=== PATIENT | female | born 1955 | race Caucasian/White ===

== ENCOUNTER 2023-12-29 13:06 | Outpatient (AMB) | payer OTHER, SELFPAY ==
[2023-12-29 13:07] VITALS: BP 116/74; PULSE 76; O2SAT 95; BMI 37.6
--- NOTE | 2023-12-29 13:07 | A.OFFPC_ITS ---
Vital Signs 12/29/23 13:07 Height 5 ft 4 in Weight 219 lb 4 oz BMI 37.6 BP 116/74 Blood Pressure Location Rt brachial Position Sitting Pulse 76 Pulse Source Pulse Oximeter Pulse Oximetry (%) 95 Oxygen Delivery Method Room Air Intake Visit Reasons: Est Care Allergies povidone-iodine [From BETADINE] Allergy (Unknown, Unverified 12/29/23 13:10) RASH soap [From BETADINE] Allergy (Unknown, Unverified 12/29/23 13:10) RASH Tobacco use date assessed: 12/29/23 Fall risk assessment: No Falls in past year Last assessed Fall Risk: 12/29/23 Dental Screening Dental Screen Date: 12/29/23 Did you have a dental visit in the last 12 months?: Yes Did you have a dental problem in the last 6 months where you did not have access to dental care?: No Was dental information given to patient?: Patient has dentist HPI HPI Comments History of Present Illness Details The patient is a 68-year-old female with a past medical history of OA, erosive OA, breast cancer, hypertension, hyperlipidemia, hyperglycemia, abnormal TFTs, MIRIAN, anxiety presenting for follow up At last visit presented to review recent outside imaging. The patient recently had a chest x-ray performed at [facility]. This showed a large stable left breast calcification. She has a history of left breast lumpectomy x3 (11/2006, 12/2006, 02/2007). Her mammograms are up-to-date. Cardiovascular: On simvastatin and lisinopril. Unchanged chronic shortness of breath and intermittent left chest pain burping. She had a stress test in 2022 without evidence of ischemia. Treated 10/2022 for Lyme disease. She was hospitalized from 11/05-11/07/2022 after presenting with right facial numbness, right facial droop. MRI showed no acute changes but showed nonspecific findings of chronic small-vessel disease. Labs from 11/08/2022 showed positive IgM and IgG Lyme testing. ENT/allergy: Evaluated by ENT for some hearing loss. She sees Allergy as well. Chronic postnasal drip. GI: Dyspepsia swallowing with daily PPI. Continues to have a lot of phlegm and upper airway stridor. Saw Gastroenterology last year. 09/01/2017 CT Colonoscopy 2014 advised 10 year repeat-ordered today ROS CONSTITUTIONAL: Denies weight loss, fever and chills. HEENT: Denies changes in vision and hearing. RESPIRATORY: Denies SOB and cough. CV: Denies palpitations and CP GI: Denies abdominal pain, nausea, vomiting and diarrhea. : Denies dysuria and urinary frequency. MSK: Denies new myalgia and joint pain. SKIN: Denies rash and pruritus. NEUROLOGICAL: Denies headache PSYCHIATRIC: Denies recent changes in mood. PHYSICAL EXAM: GENERAL: Alert and oriented x 3. NAD EYES: EOMI. Anicteric. HENT: Moist mucous membranes. No scleral icterus. No cervical lymphadenopathy. LUNGS: Clear to auscultation bilaterally. CARDIOVASCULAR: Regular rate and rhythm. ABDOMEN: Soft, non-tender +bs EXTREMITIES: No edema. Non-tender. SKIN: No rashes or lesions. Warm. NEUROLOGIC: No focal neurological deficits. CN II-XII grossly intact PSYCHIATRIC: Cooperative. Appropriate mood and affect [facility] Surgical History (Updated 12/29/23 @ 13:13 by Minerva Bhakta CMA) H/O section (~1989) History of lumpectomy (~2006) History of total right knee replacement (~2017) Family History (Updated 12/29/23 @ 13:15 by Minerva Bhakta CMA) Mother Diabetes Hypertension Maternal Grandmother Diabetes Father Hypertension Social History (Updated 12/29/23 @ 13:12 by Minerva Bhakta CMA) Household Members: Spouse Housing: House Alcohol intake: never Patient Tobacco Use Status: Never used Tobacco e-Cigarette/Vaping Use: Never Used service: No Current occupational status: employed 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 1. Little interest or pleasure in doing things: not at all 2. Feeling down, depressed, or hopeless: not at all 3. Trouble falling or staying asleep, or sleeping too much: not at all 4. Feeling tired or having little energy: not at all 5. Poor appetite or overeating: not at all 6. Feeling bad about yourself - or that you are a failure or have let yourself or your family down: not at all 7. Trouble concentrating on things, such as reading the newspaper or watching television: not at all 8. Moving or speaking so slowly that other people could have noticed. Or the opposite - being so fidgety or restless that you have been moving around a lot more than usual: not at all 9. Thoughts that you would be better off or of hurting yourself in some way: not at all Total score: 0 Depression Screening Interpretation: Negative (neg) Depression Screening Done: Yes 77484 - PHQ-9 Billing: Yes Source: Developed by Drs. Alexander Maldonado, Jessica Arias, Lloyd Bauer and colleagues, with an educational ting from [employer]. Thrive Questionnaire Date Thrive assessed: 12/29/23 I am a: Patient What is your living situation today?: I have a steady place to live Within the past 12 months, did the food you bought not last and you didn't have the money to get more?: Never true Within the past 12 months, did you worry whether your food would run out before you got money to buy more?: Never true Do you have trouble paying for medicines?: No Do you have trouble getting transportation to medical appointments?: No Do you have trouble paying your heating and electricity bill?: No Do you have trouble taking care of your child, family member or friend?: No Do you have trouble with day-to-day activities such as bathing, preparing meals, shopping, managing finances, etc.?: No Are you currently unemployed and looking for a job?: No Are you interested in more education?: No Please select the resources that you would like help with: None Currently or been in a relationship where the following occur: No concerns reported THRIVE Score: 0 AUDIT C Alcohol Use Questionnaire (AUDIT-C) 1. How often do you have a drink containing alcohol?: Never 3. How often do you have six or more drinks on one occasion?: Never Total Score: 0 JAKE-7 AMB Questionnaire JAKE-7 Date JAKE - 7 assessed: 12/29/23 Feeling nervous, anxious, or on edge: 0 = Not at all Not being able to stop or control worryin = Not at all Worrying too much about different things: 0 = Not at all Trouble relaxin = Not at all Being so restless that it is hard to sit still: 0 = Not at all Feeling afraid as if something awful might happen: 0 = Not at all Source: Developed by Drs. Alexander Maldonado, Jessica Arias, Lloyd Bauer and colleagues, with an educational ting from [employer]. JAKE-7 Assessment Billing JAKE-7 Assessment Tool: JAKE-7 Assessment 38439 Physical exam (Primary Care) Vital Signs: Last Vital Signs Pulse 76 12/29/23 13:07 BP 116/74 12/29/23 13:07 Pulse Ox 95 12/29/23 13:07 Oxygen Delivery Method Room Air 12/29/23 13:07 BMI result Body Mass Index 37.6 Tobacco/Smoking Status: Tobacco use Status Tobacco use date assessed 12/29/23 12/29/23 13:16 Patient Tobacco Use Status Never used Tobacco 12/29/23 13:16 e-Cigarette/Vaping Use Never Used 12/29/23 13:16 PHQ-9: PHQ-9 Score PHQ-9: Total score 0 12/29/23 13:22 Depression Screening Interpretation: Negative (neg) Thrive Assessment: Date of Thrive Assessment Date Thrive assessed 12/29/23 12/29/23 13:16 Currently or been in a relationship where the following occur: No concerns reported Assessment and Plan Assessment & Plan (1) Lesion of breast: Code(s): N64.9 - Disorder of breast, unspecified Plan: Diagnostic mammo and u/s ordered-this was already placed a few months ago Referral to breast surgeon-also placed a few months ago (2) Elevated glucose: Code(s): R73.09 - Other abnormal glucose Plan: check labs (3) Hypertension: Code(s): I10 - Essential (primary) hypertension Qualifiers: Hypertension type: primary hypertension Qualified Code(s): I10 - Essential (primary) hypertension Plan: well controlled on current dose (4) Hyperlipidemia: Code(s): E78.5 - Hyperlipidemia, unspecified Qualifiers: Hyperlipidemia type: mixed hyperlipidemia Qualified Code(s): E78.2 - Mixed hyperlipidemia Plan: Lipids reviewed from 06/2023. Mild elevation in total cholesterol with LDL at goal Orders: Orders Hemoglobin A1c Today R73.09 - Other abnormal glucose, Z13.0 - Encounter for screening for diseases of the blood and blood-forming organs and certain disorders involving the immune mechanism, Z13.228 - Encounter for screening for other metabolic disorders Complete Blood Count Auto Diff Today R73.09 - Other abnormal glucose, Z13.0 - Encounter for screening for diseases of the blood and blood-forming organs and certain disorders involving the immune mechanism, Z13.228 - Encounter for screening for other metabolic disorders Comprehensive Met. Panel Today R73.09 - Other abnormal glucose, Z13.0 - Encounter for screening for diseases of the blood and blood-forming organs and certain disorders involving the immune mechanism, Z13.228 - Encounter for screen ing for other metabolic disorders TSH reflex Free T4 Today R73.09 - Other abnormal glucose, Z13.0 - Encounter for screening for diseases of the blood and blood-forming organs and certain disorders involving the immune mechanism, Z13.228 - Encounter for screening for other metabolic disorders MM screening mammo BI Today Z12.31 - Encounter for screening mammogram for malignant neoplasm of breast Referrals Open Access Screening Colonoscopy Referral Z12.11 - Encounter for screening for malignant neoplasm of colon, Z12.12 - Encounter for screening for malignant neoplasm of rectum Medications: New clobetasol 0.05% applied onto dry (not wet) scalp once a day in a thin film to the affected areas only, and left in place for 15 minutes before lathering and rinsing. 1 appl topical BEDTIME 4 weeks 118 mL 3RF lisinopril 10 mg PO DAILY 90 tabs 3RF omeprazole 20 mg PO DAILY 90 caps 3RF simvastatin 20 mg PO BEDTIME 90 tabs 3RF Coding Level of Care Code Est Pt Level 5 (05744) Diagnoses Lesion of breast N64.9 Elevated glucose R73.09 Primary hypertension I10 Hypertension type: primary hypertension Mixed hyperlipidemia E78.2 Hyperlipidemia type: mixed hyperlipidemia Additional Codes JAKE-7 Assessment Billing - JAKE-7 Assessment Tool: JAKE-7 Assessment 37174 ([id number]) Time Spent (min) 42
== END 2023-12-29 13:51 | disposition home or self-care (01) ==
PROVIDERS: Visit Provider Internal Medicine
DX: N64.9 Disorder of breast, unspecified (principal); I10 Essential (primary) hypertension; E78.2 Mixed hyperlipidemia

== ENCOUNTER → 2023-12-29 13:06 | Outpatient (BNVA) | payer OTHER, SELFPAY | PROVIDERS: Visit Provider Internal Medicine | DX: N64.9 Disorder of breast, unspecified (principal); R73.09 Other abnormal glucose; I10 Essential (primary) hypertension; E78.2 Mixed hyperlipidemia; Z79.899 Other long term (current) drug therapy | CPT/HCPCS: 96127 ==

== ENCOUNTER 2024-01-05 11:00 | Outpatient (REF) | payer OTHER, SELFPAY ==
[2024-01-05 14:10] LABS: MANUAL DIFF FLAG NO
[2024-01-05 14:17] LABS: Basophils Percent Auto 0.5 % (0-2); Eosinophils Absolute Auto 0.2 X10*3/uL (0.0-0.4); Eosinophils Percent Auto 4.2 % (0-4); Hematocrit 39.1 % (37.0-47.0); Hemoglobin 13.1 g/dl (12.0-16.0); Imm Gran Abs Auto 0.02 X10*3/uL (0.00-0.03); Imm Gran Pct Auto 0.3 % (0.0-0.4); Lymphocytes Absolute Auto 1.3 X10*3/uL (1.2-4.9); Lymphocytes Percent Auto 21.8 % (20-40); Mean Corpuscular HGB Conc 33.5 g/dl (31.0-35.0); Mean Corpuscular Hemoglobin 29.1 pg (27.0-33.0); Mean Corpuscular Volume 86.9 fL (80.0-98.0); Mean Platelet Volume 10.7 fL (9.4-12.3); Monocytes Absolute Auto 0.4 X10*3/uL (0.1-1.2); Monocytes Percent Auto 6.8 % (2-11); Neutrophils Absolute Auto 3.8 x10*3/uL (2.0-8.3); Neutrophils Percent Auto 66.4 % (45-73); Platelet Count 294 X10*3/uL (160-400); White Blood Count 5.8 X10*3/uL (4.8-10.8)
[2024-01-05 14:26] LABS: Estimated Average Glucose 105 mg/dL; Hemoglobin A1C 117.7341 umol/L; Hemoglobin A1c % 5.3 % (<6.0); Total Hemoglobin (HGBA1C) 3378.7642 umol/L
[2024-01-05 14:42] LABS: Alanine Aminotransferase 13 U/L (0-31); Albumin Level 3.9 g/dL (3.5-5.0); Alkaline Phosphatase 68 U/L (39-117); Anion Gap 10 (12-20); Aspartate Amino Transferase 17 U/L (5-31); Bilirubin Total 0.5 mg/dL (0.0-1.0); Blood Urea Nitrogen 17 mg/dL (9-16); Calcium 9.3 mg/dL (8.4-10.2); Carbon Dioxide 25 mmol/L (22-29); Chloride 109 mmol/L (96-108); Estimated Glomerular Filt Rate > 60; Glucose Random 96 mg/dL (60-115); Potassium 4.2 mmol/L (3.3-5.1); Sodium 140 mmol/L (135-145); Total Protein 7.2 g/dL (6.5-8.0)
[2024-01-05 14:59] LABS: TSH reflex Free T4 2.77 uIU/mL (0.32-4.0)
== END 2024-01-05 11:01 | disposition home or self-care (01) ==
LOC: HO.WFDLDS 11:00
PROVIDERS: Visit Provider Internal Medicine
DX: Z13.228 Encounter for screening for other metabolic disorders (principal); Z13.0 Encounter for screening for diseases of the blood and blood-forming organs and certain disorders involving the immune mechanism; R73.09 Other abnormal glucose
CPT/HCPCS: 36415; 80053; 83036; 84443; 85025

== ENCOUNTER 2024-10-04 15:05 | Outpatient (AMB) | payer OTHER, SELFPAY ==
--- NOTE | 2024-10-04 15:13 | MHC.PC.OV ---
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: No Allergies povidone-iodine (From BETADINE) Allergy (Unknown, Verified 10/04/24 15:14) RASH soap (From BETADINE) Allergy (Unknown, Verified 10/04/24 15:14) RASH Tobacco use date assessed: 12/29/23 Fall risk assessment: No Falls in past year Dental Screening Dental Screen Date: 12/29/23 Did you have a dental visit in the last 12 months?: Yes Did you have a dental problem in the last 6 months where you did not have access to dental care?: No Was dental information given to patient?: Patient has dentist HPI HPI Comments History of Present Illness Details The patient is a 69-year-old female with a past medical history of OA, erosive OA, breast cancer, hypertension, hyperlipidemia, hyperglycemia, abnormal TFTs, MIRIAN, anxiety presenting for physical exam At last visit presented to review recent outside imaging. The patient recently had a chest x-ray performed at [facility]. This showed a large stable left breast calcification. She has a history of left breast lumpectomy x3 (11/2006, 12/2006, 02/2007). Her mammograms are up-to-date. She saw the breast center thereafter. Breast exam was consistent with a left breast mass. Location was confirmed with prior cxr and mammogram and decided to be previous scar tissue Cardiovascular: On simvastatin and lisinopril. Shortness of breath improved with recent weight loss and initiation of Qvar. She had a stress test in 2022 without evidence of ischemia. Treated 10/2022 for Lyme disease. She was hospitalized from 11/05-11/07/2022 after presenting with right facial numbness, right facial droop. MRI showed no acute changes but showed nonspecific findings of chronic small-vessel disease. Labs from 11/08/2022 showed positive IgM and IgG Lyme testing. ENT/allergy: Evaluated by ENT for some hearing loss. She sees Allergy as well. Chronic postnasal drip. GI: Dyspepsia swallowing with daily PPI. Continues to have a lot of phlegm and upper airway stridor. Saw Gastroenterology last year. 09/01/2017 CT Colonoscopy [facility] 2023-[facility] CONSTITUTIONAL: Denies weight loss, fever and chills. HEENT: Denies changes in vision and hearing. RESPIRATORY: Denies SOB and cough. CV: Denies palpitations and CP GI: Denies abdominal pain, nausea, vomiting and diarrhea. : Denies dysuria and urinary frequency. MSK: Denies new myalgia and joint pain. SKIN: Denies rash and pruritus. NEUROLOGICAL: Denies headache PSYCHIATRIC: Denies recent changes in mood. PHYSICAL EXAM: GENERAL: Alert and oriented x 3. NAD EYES: EOMI. Anicteric. HENT: Moist mucous membranes. No scleral icterus. No cervical lymphadenopathy. LUNGS: Clear to auscultation bilaterally. CARDIOVASCULAR: Regular rate and rhythm. ABDOMEN: Soft, non-tender +bs EXTREMITIES: No edema. Non-tender. SKIN: No rashes or lesions. Warm. NEUROLOGIC: No focal neurological deficits. CN II-XII grossly intact PSYCHIATRIC: Cooperative. 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 1. Little interest or pleasure in doing things: not at all 2. Feeling down, depressed, or hopeless: not at all 3. Trouble falling or staying asleep, or sleeping too much: not at all 4. Feeling tired or having little energy: not at all 5. Poor appetite or overeating: not at all 6. Feeling bad about yourself - or that you are a failure or have let yourself or your family down: not at all 7. Trouble concentrating on things, such as reading the newspaper or watching television: not at all 8. Moving or speaking so slowly that other people could have noticed. Or the opposite - being so fidgety or restless that you have been moving around a lot more than usual: not at all 9. Thoughts that you would be better off or of hurting yourself in some way: not at all Total score: 0 Depression Screening Interpretation: Negative Depression Screening Done: Yes 39948 - PHQ-9 Billing: Yes Source: Developed by Drs. Alexander Maldonado, Jessica Arias, Lloyd Bauer and colleagues, with an educational ting from [employer]. Thrive Questionnaire Date Thrive assessed: 09/27/24 I am a: Patient What is your living situation today?: I have a steady place to live Within the past 12 months, did the food you bought not last and you didn't have the money to get more?: Never true Within the past 12 months, did you worry whether your food would run out before you got money to buy more?: Never true Do you have trouble paying for medicines?: No Do you have trouble getting transportation to medical appointments?: No Do you have trouble paying your heating and electricity bill?: No Do you have trouble taking care of your child, family member or friend?: No Do you have trouble with day-to-day activities such as bathing, preparing meals, shopping, managing finances, etc.?: No Are you currently unemployed and looking for a job?: No Are you interested in more education?: No Please select the resources that you would like help with: None Currently or been in a relationship where the following occur: I choose not to answer THRIVE Score: 0 AUDIT C Alcohol Use Questionnaire (AUDIT-C) 1. How often do you have a drink containing alcohol?: Never 3. How often do you have six or more drinks on one occasion?: Never Total Score: 0 JAKE-7 AMB Questionnaire JAKE-7 Date JAKE - 7 assessed: 10/04/24 Feeling nervous, anxious, or on edge: 0 = Not at all Not being able to stop or control worryin = Not at all Worrying too much about different things: 0 = Not at all Trouble relaxin = Not at all Being so restless that it is hard to sit still: 0 = Not at all Becoming easily annoyed or irritable: 0 = Not at all Feeling afraid as if something awful might happen: 0 = Not at all Total JAKE-7 score (0-4 normal; 5-9 mild; 10-14 moderate; 15-21 severe): 0 Source: Developed by Drs. Alexander Maldonado, Jessica Arias, Lloyd Bauer and colleagues, with an educational ting from [employer]. JAKE-7 Assessment Billing JAKE-7 Assessment Tool: JAKE-7 Assessment 57976 Physical exam (Primary Care) Vital Signs: Last Vital Signs Temp 97.8 F 10/04/24 15:18 Pulse 73 10/04/24 15:18 Resp 14 10/04/24 15:18 BP 126/88 10/04/24 15:18 Pulse Ox 93 10/04/24 15:18 Oxygen Delivery Method Room Air 10/04/24 15:18 BMI result Body Mass Index 35.9 Tobacco/Smoking Status: Tobacco use Status Tobacco use date assessed 12/29/23 10/04/24 15:15 Patient Tobacco Use Status Never used Tobacco 10/04/24 15:22 e-Cigarette/Vaping Use Never Used 10/04/24 15:22 PHQ-9: PHQ-9 Score PHQ-9: Total score 0 10/04/24 15:22 Depression Screening Interpretation: Negative Thrive Assessment: Date of Thrive Assessment Date Thrive assessed 09/27/24 10/04/24 15:15 Currently or been in a relationship where the following occur: I choose not to answer Coding Level of Care Code Est Pt Prev Care >65y(40268) Diagnoses Physical exam Z00.00 Primary hypertension I10 Hypertension type: primary hypertension Mixed hyperlipidemia E78.2 Hyperlipidemia type: mixed hyperlipidemia Elevated glucose R73.09 Lesion of breast N64.9 Additional Codes JAKE-7 Assessment Billing - JAKE-7 Assessment Tool: JAKE-7 Assessment 44913 ([id number]) PHQ-9 - 59485 - PHQ-9 Billing: Yes ([id number]) Assessment & Plan Assessment & Plan (1) Physical exam: Code(s): Z00.00 - Encounter for general adult medical examination without abnormal findings (2) Hypertension: Code(s): I10 - Essential (primary) hypertension Category: Medical Qualifiers: Hypertension type: primary hypertension Qualified Code(s): I10 - Essential (primary) hypertension (3) Hyperlipidemia: Code(s): E78.5 - Hyperlipidemia, unspecified Category: Medical Qualifiers: Hyperlipidemia type: mixed hyperlipidemia Qualified Code(s): E78.2 - Mixed hyperlipidemia (4) Elevated glucose: Code(s): R73.09 - Other abnormal glucose Category: Medical (5) Lesion of breast: Code(s): N64.9 - Disorder of breast, unspecified Category: Medical Plan Physical exam Interval history reviewed Breathing stable on Qvar Labs ordered HTN-patient would again like to try and decrease dose of medication Orders: Orders Complete Blood Count Auto Diff 6 Months E78.2 - Mixed hyperlipidemia, I10 - Essential (primary) hypertension, R73.09 - Other abnormal glucose, Z13.0 - Encounter for screening for diseases of the blood and blood-forming organs and certain disorders involving the immune mechanism, Z13.228 - Encounter for screening for other metabolic disorders TSH reflex Free T4 6 Months E78.2 - Mixed hyperlipidemia, I10 - Essential (primary) hypertension, R73.09 - Other abnormal glucose, Z13.0 - Encounter for screening for diseases of the blood and blood-forming organs and certain disorders involving the immune mechanism, Z13.228 - Encounter for screening for other metabolic disorders Hemoglobin A1c 6 Months E78.2 - Mixed hyperlipidemia, I10 - Essential (primary) hypertension, R73.09 - Other abnormal glucose, Z13.0 - Encounter for screening for diseases of the blood and blood-forming organs and certain disorders involving the immune mechanism, Z13.228 - Encounter for screening for other metabolic disorders Comprehensive Met. Panel 6 Months E78.2 - Mixed hyperlipidemia, I10 - Essential (primary) hypertension, R73.09 - Other abnormal glucose, Z13.0 - Encounter for screening for diseases of the blood and blood-forming organs and certain disorders involving the immune mechanism, Z13.228 - Encounter for screening for other metabolic disorders Lipid Panel 6 Months E78.2 - Mixed hyperlipidemia, I10 - Essential (primary) hypertension, R73.09 - Other abnormal glucose, Z13.0 - Encounter for screening for diseases of the blood and blood-forming organs and certain disorders involving the immune mechanism, Z13.228 - Encounter for screening for other metabolic disorders Medications: New lisinopril 5 mg PO DAILY 90 tabs 3RF Discontinued lisinopril Discontinued Reason: Doctor's Order 10 mg PO DAILY 90 tabs 3RF
[2024-10-04 15:18] VITALS: BP 126/88; PULSE 73; RESP 14; TEMP 36.6; O2SAT 93; BMI 35.9
--- OUTSIDE RECORDS SUMMARY | 2024-10-04 15:31 | XMS_ITS | Clinical Summary ---
Author Organization [facility] Address [address] [place] [address] Care Team Providers Care Gas Prover Name Role Phone Kathy Purcell MD Primary Care Provider [phone] Allergies No known active allergies Social History Tobacco Use Types Packs/Day Years Used Date Smoking Tobacco: Never Assessed Comments Unknown Sex and Gender Information Value Date Recorded Sex Assigned at Not on file Legal Sex Female 8:56 AM EDT Gender Identity Not on file Sexual Orientation Not on file Last Filed Vital Signs Vital Sign Reading Time Taken Comments Blood Pressure 135/85 06/20/2020 9:15 AM EDT Pulse 78 06/20/2020 9:15 AM EDT Temperature 36.4 C (97.6 F) 06/20/2020 9:15 AM EDT Respiratory Rate - - Oxygen Saturation 96% 06/20/2020 9:15 AM EDT Inhaled Oxygen Concentration - - Weight 113 kg (250 lb) 06/20/2020 9:15 AM EDT Height 162.6 cm (5' 4 ) 06/20/2020 9:15 AM EDT Body Mass Index 42.91 06/20/2020 9:15 AM EDT Plan of Treatment Health Maintenance Due Date Last Done Comments Hepatitis C Virus Screening 1955 DTaP/Tdap/Td Vaccines (1 - Tdap) 1976 Mammogram 1997 Colonoscopy 2002 Pneumococcal Vaccines 50+ (1 of 1 - PCV) 08/17/2007 Zoster (Shingles) Vaccine (1 of 2) 08/17/2007 DXA Bone Density (Females,Ag es 65 and older) 2022 COVID-19 Vaccine (2023-2 5 season) 2023 Influenza Vaccine 10/29/2024 RSV Vaccine 60 years and old er and Patients (1 - 1-dose 75+ series) 2032 Hepatitis B Vaccines Aged Out No long er eligible based on patient's age to complete this topic Insurance [facility] Care Teams Gas Prover Relationship Specialty Start Date End Date Kathy Purcell MD [address] [place] [address] PCP - General 06/20/20
--- OUTSIDE RECORDS SUMMARY | 2024-10-04 15:31 | XMS_ITS | Data Portability ---
Author Organization [facility], [facility] Address [address] [place] [address] Care Team Providers Care Ruffler Name Role Phone MD RODRIGUEZ JEANNE Primary Care Provider JOHNATHAN JORDAN Outreach Nurse Assessment Encounter Date Assessment Date Assessment LastModified by Organization Details LastModified Time 10/27/2014 10/27/2014 foot pain right greater than left, pes planovalgus deformity jerskine Not available 10/27/2014 11:36:19 11/17/2014 11/17/2014 foot pain right greater than left, pes planovalgus deformity jerskine Not available 11/17/2014 10:33:22 12/29/2014 12/29/2014 foot pain right greater than left, pes planovalgus deformity jerskine Not available 12/29/2014 12:24:31 Plan of Treatment Reminders Order Date Submit Date Provider Last Modified By Organization Details Last Modified Time Details Appointments None record ed. Lab None record ed. Referral None record ed. Procedures None record ed. Surgeries None record ed. Imaging None record ed. Medication Orders None record ed. Patient TargetsNo targets recorded. Patient Instructions Encounter Date Encounter Id Patient Instructions Last Modified By Organization Details Last Modified Time 10/27/2014 [id number] Patient to schedule casting of custom orthotics ( sport with Spenco top covers). jerskine Not available 10/27/2014 11:36:19 11/17/2014 [id number] Casting of custo m orthotics performed. Will contact patient to dispense devices. jerskine Not available 11/17/2014 10:33:22 12/29/2014 [id number] Patient to retur n 2-3 weeks for orthotic evaluation. jerskine Not available 12/29/2014 12:24:31 Reason for Referral None Reported. Results Created Date Observation Date Name Description Value Unit Range Abnormal Flag Note LastModifiedBy Organization Detail LastModifiedTime 10/01/19 24 09/25/2023 XR, chest , 2 view No observ ation record ed. [facility] [address], [place], [address], 10/05/2023 12:54:03 Result Notes None recorded. Medical Equipment None Reported. Allergies No known drug allergies Medications Name Sig Start Date Stop Date Status Note LastModified by Organization Details LastModified Time azithromycin 250 mg tablet TAKE 2 TABLETS BY MOUTH TODAY, THEN TAKE 1 TABLET DAILY FOR 4 DAYS active Not Available Not Available No t Available simvastatin 40 mg tablet active Not Available Not Available No t Available lisinopril 10 mg tablet active Not Available Not Available No t Available fluticasone propionate 50 mcg/actuation nasal spray,suspensi on active Not Available Not Available Not Available simvastatin active Not Available Not A vailable Not Available lisinopril active Not Available Not Av ailable Not Available Vitals Date Recorded Body weight Body height Heart rate Body mass index (BMI) Systolic And Diastolic Provider Name and Address Organization Details Last Updated DateTime 10/27/2014 248733.2 0695 g 162.56 cm 78 /min 40.3 kg/m2 120/80 mm[Hg] Caleb Castellon MA [facility] 10/27/2014 10:57:34 Date Recorded Body weight Body height Body mass index (BMI) Heart rate Systolic And Diastolic Provider Name and Address Organization Details Last Updated DateTime 11/17/2014 333273.2 0695 g 162.56 cm 40.3 kg/m2 76 /min 120/80 mm[Hg] Caleb Castellon MA [facility] 11/17/2014 10:11:41 Date Recorded Body weight Body height Body mass index (BMI) Heart rate Systolic And Diastolic Provider Name and Address Organization Details Last Updated DateTime 12/29/2014 827685.2 0695 g 162.56 cm 40.3 kg/m2 76 /min 130/80 mm[Hg] Caleb Castellon MA [facility] 12/29/2014 11:54:37 Social History None recorded. Functional Status None recorded. Mental Status None recorded. Family History Nothing Reported. Medical History No medical history recorded. Gynecological HistoryNo gynecological history recorded. Obstetrics History GPAL:G 0 P 0 0 0 0 Past Encounters Encounter ID Performer Location Encounter Start Date Encounter Closed Date Diagnosis/Indication Diagnosis SNOMED-CT Code Diagnosis ICD10 Code Diagnosis Note [id number] Johnathan Jordan DPM Podiatry, [facility] [address] [place] [address] 10/27/2014 10:36:19 10/27/2014 11:39:18 Pain in lower limb 03460813 Congenital valgus deformity of foot 55238719 [id number] Johnathan Jordan DPM Podiatry, [address] [address] 11/17/2014 10:03:52 11/17/2014 10:28:16 Pain in lower limb 61531411 Congenital valgus deformity of foot 30310747 [id number] Johnathan Jordan DPM Podiatry, [address] [address] 12/29/2014 11:22:34 12/29/2014 12:11:43 Deformity of foot 480218660 M21.969 Health Concerns Section Related Observation LastModified by Organization Detai ls LastModified Time None Recorded Concern Status LastModified by Organization Details LastModified Time None Recorded Advance Directives Directive None Recorded Payers Insurance Date Sequence Insurance Name Policy Number Policy Scott Covered Member ID Scott Member ID Guarantor Name 01/10/2015 1 [facility] [employer] [facility] (HMO) [id number] Allison Sol [id number] Allison Sol 11/17/2014 1 [facility] [employer] [facility] (PPO) [id number] Allison Sol [id number] Allison Sol Notes Date Note Type Note Provider Name and Address Organization Details Recorded Time 10/27/2014 text/html HPI Patient presents to the office complaining of pain right foot greater than left that she has been experiencing for a long time, but seems to be worsening. Patient states she experiences pain especially along the top of her right foot and joint of her right big toe following increased weightbearing activity. Patient has not noted swelling or discoloration. Johnathan Jordan DPM [address] [place] [address], [phone], [facility], [place] 10/27/2014 11:36:28 11/17/2014 text/html HPI Patient presents to the office for casting of custom orthotics for foot pain right greater than left associated with pes planovalgus deformity. Johnathan Jordan DPM [address] [place], [address], [facility], [place] 11/17/2014 10:33:31 12/29/2014 text/html HPI Patient presents to the office to dispense custom orthotics for generalized foot pain right foot greater than left associated with pes planovalgus deformity. Patient continues to experience pain with increased weightbearing activity. Johnathan Jordan DPM [address] [place], [address], [facility], [place] 12/29/2014 12:24:42 OBGyn Episode No OBEpisode recorded.
--- OUTSIDE RECORDS SUMMARY | 2024-10-04 15:31 | XMS_ITS | Encounter Summary ---
Author Organization [employer] Address [address] [facility] [address] [place] [address] Care Team Providers Care Catering Server Name Role Phone PcpHamzah Unassigned Primary Care Provider U navailable Encounter Details Date Type Department Care Team (Latest Contact Info) Description 01/03/2021 [facility] CONVERSIONS Dental, Provider, DDS Social History Tobacco Use Types Packs/Day Years Used Date Smoking Tobacco: Never Assessed Comments Unknown Sex and Gender Information Value Date Recorded Sex Assigned at Female 07/11/2022 10:21 AM EDT Legal Sex Female 5:35 PM EDT Gender Identity Female 07/11/2022 10:21 AM EDT Sexual Orientation Choose not to disclose 2022 10:21 AM EDT documented as of this encounter Plan of Treatment Upcoming Encounters Date Type Department Care Team (Late st Contact Info) Description 04/07/2025 8:30 AM EST Office Visit Hamzah [facility] [address] [place] [address] Rosa De Souza documented as of this encounter Visit Diagnoses Not on filedocumented in this encounter Care Teams Catering Server Relationship Specialty Start Date End Date PcpHamzah Unassigned PCP - General Family Medicine 07/29/22 documented as of this encounter
== END 2024-10-04 15:48 | disposition home or self-care (01) ==
LOC: HO.HMCFM 15:06
PROVIDERS: Visit Provider Internal Medicine
DX: Z00.00 Encounter for general adult medical examination without abnormal findings (principal); I10 Essential (primary) hypertension; E78.2 Mixed hyperlipidemia; R73.09 Other abnormal glucose; N64.9 Disorder of breast, unspecified

== ENCOUNTER → 2024-10-04 15:05 | Outpatient (BNVA) | payer OTHER, SELFPAY | PROVIDERS: Visit Provider Internal Medicine | DX: Z00.00 Encounter for general adult medical examination without abnormal findings (principal); I10 Essential (primary) hypertension; E78.2 Mixed hyperlipidemia; R73.09 Other abnormal glucose; N64.9 Disorder of breast, unspecified; Z13.30 Encounter for screening examination for mental health and behavioral disorders, unspecified; Z13.31 Encounter for screening for depression | CPT/HCPCS: 96127 ==

== ENCOUNTER 2025-02-18 10:55 | Outpatient (AMB) | payer OTHER, SELFPAY ==
--- NOTE | 2025-02-18 11:01 | MHC.PC.OV ---
Vital Signs 02/18/25 11:02 Height 5 ft 4 in Weight 209 lb 6 oz BMI 35.9 BP 130/88 Blood Pressure Location Rt brachial Position Sitting Respiration 14 Pulse 76 Pulse Source Pulse Oximeter Temp 98.2 F Temp Source Oral Pulse Oximetry (%) 96 Oxygen Delivery Method Room Air Intake Visit Reasons: left shoulder issue Intake Note: Dislocated left shoulder last Friday. Neck pain. No right arm is hurting. left hip pain. 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 This happened last week usually she can stretch/pull it and then it feels better. It has not improved. Then she started sleeping on her back as such and she started to develop neck tightness right shoulder pain, frozen shoulder. Cardiovascular: On simvastatin and lisinopril. Shortness of breath improved with recent weight loss and initiation of Qvar. She had a stress test in 2022 without evidence of ischemia. Treated 10/2022 for Lyme disease. She was hospitalized from 11/05-11/07/2022 after presenting with right facial numbness, right facial droop. MRI showed no acute changes but showed nonspecific findings of chronic small-vessel disease. Labs from 11/08/2022 showed positive IgM and IgG Lyme testing. ENT/allergy: Evaluated by ENT for some hearing loss. She sees Allergy as well. Chronic postnasal drip. GI: Dyspepsia swallowing with daily PPI. Continues to have a lot of phlegm and upper airway stridor. Saw Gastroenterology last year. Breast: The patient recently had a chest x-ray performed at [facility]. This showed a large stable left breast calcification. She has a history of left breast lumpectomy x3 (11/2006, 12/2006, 02/2007). Her mammograms are up-to-date.She saw the breast center thereafter. Breast exam was consistent with a left breast mass. Location was confirmed with prior cxr and mammogram and decided to be previous scar tissue 09/01/2017 CT Colonoscopy Spring 2023-[facility] See HPI PHYSICAL EXAM: GENERAL: Alert and oriented x 3. NAD EYES: EOMI. Anicteric. HENT: Moist mucous membranes. No scleral icterus. No cervical lymphadenopathy. LUNGS: Clear to auscultation bilaterally. CARDIOVASCULAR: Regular rate and rhythm. MSK: Tender shoulder joints bilaterally, right superior trapezius spasm. Limited movement right shoulder ABDOMEN: Soft, non-tender +bs EXTREMITIES: No edema. Non-tender. SKIN: No rashes or lesions. Warm. NEUROLOGIC: No focal neurological deficits. CN II-XII grossly intact PSYCHIATRIC: Cooperative. 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 Cognitive needs: No Hearing needs: Yes Vision needs: Yes Questionnaire Thrive Questionnaire Date Thrive assessed: 09/27/24 I am a: Patient What is your living situation today?: I have a steady place to live Within the past 12 months, did the food you bought not last and you didn't have the money to get more?: Never true Within the past 12 months, did you worry whether your food would run out before you got money to buy more?: Never true Do you have trouble paying for medicines?: No Do you have trouble getting transportation to medical appointments?: No Do you have trouble paying your heating and electricity bill?: No Do you have trouble taking care of your child, family member or friend?: No Do you have trouble with day-to-day activities such as bathing, preparing meals, shopping, managing finances, etc.?: No Are you currently unemployed and looking for a job?: No Are you interested in more education?: No Please select the resources that you would like help with: None Currently or been in a relationship where the following occur: I choose not to answer THRIVE Score: 0 AUDIT C Alcohol Use Questionnaire (AUDIT-C) 3. How often do you have six or more drinks on one occasion?: Never Total Score: 0 JAKE-7 AMB Questionnaire JAKE-7 Date JAKE - 7 assessed: 10/04/24 Source: Developed by Drs. Alexander Maldonado, Jessica Arias, Lloyd Bauer and colleagues, with an educational ting from [employer]. Physical exam (Primary Care) Vital Signs: Last Vital Signs Temp 98.2 F 02/18/25 11:02 Pulse 76 02/18/25 11:02 Resp 14 02/18/25 11:02 BP 130/88 02/18/25 11:02 Pulse Ox 96 02/18/25 11:02 Oxygen Delivery Method Room Air 02/18/25 11:02 BMI result Body Mass Index 35.9 Tobacco/Smoking Status: Tobacco use Status Tobacco use date assessed 02/18/25 02/18/25 11:12 Patient Tobacco Use Status Never used Tobacco 02/18/25 11:12 e-Cigarette/Vaping Use Never Used 02/18/25 11:12 Thrive Assessment: Date of Thrive Assessment Date Thrive assessed 09/27/24 02/18/25 11:06 Currently or been in a relationship where the following occur: I choose not to answer Coding Level of Care Code Est Pt Level 4 (90298) Diagnoses Acute pain of both shoulders M25.511; M25.512 Chronicity: acute Assessment & Plan Assessment & Plan (1) Bilateral shoulder pain: Code(s): M25.511 - Pain in right shoulder; M25.512 - Pain in left shoulder Category: Medical Qualifiers: Chronicity: acute Qualified Code(s): M25.511 - Pain in right shoulder; M25.512 - Pain in left shoulder Plan Bilateral shoulder pain, neck pain Advised ortho urgent care Labs for concern PMR. Prednisone sent, tramadol prn, NSAIDs, ice/heat, muscle relaxer qhs prn Orders: Orders Erythrocyte Sedimentation Rate Today M25.511 - Pain in right shoulder, M25.512 - Pain in left shoulder, M54.2 - Cervicalgia EDI Reflex Titer and Pattern Today M25.511 - Pain in right shoulder, M25.512 - Pain in left shoulder, M54.2 - Cervicalgia C Reactive Protein Today M25.511 - Pain in right shoulder, M25.512 - Pain in left shoulder, M54.2 - Cervicalgia Medications: New prednisone 40 mg (2 x 20 mg) PO DAILY 10 tabs 0RF tramadol 50 mg PO Q6H PRN 28 tabs 0RF pain 7 days cyclobenzaprine 10 mg PO BEDTIME PRN 30 tabs 0RF muscle spasm Refilled simvastatin 20 mg PO BEDTIME 10 tabs 0RF simvastatin 20 mg PO BEDTIME 90 tabs 3RF
[2025-02-18 11:02] VITALS: BP 130/88; PULSE 76; RESP 14; TEMP 36.8; O2SAT 96; BMI 35.9
--- OUTSIDE RECORDS SUMMARY | 2025-02-18 11:50 | XMS_ITS | Encounter Summary ---
Author Organization [employer] Address [address] [place] [address] [address] [place] [address] Care Team Providers Care Home Health Billing Specialist Name Role Phone PcpHamzah Unassigned Primary Care Provider U navailable Encounter Details Date Type Department Care Team (Latest Contact Info) Description 01/14/2022 [facility] CONVERSION[facility] Dental, Provider, DDS Social [...] 04/07/2025 8:30 AM EST Office Visit Hamzah [facility] [address] [place] [address] Rosa De Souza documented as of this encounter Visit Diagnoses Not on filedocumented in this encounter Care Teams Home Health Billing Specialist Relationship Specialty Start Date End Date PcpHamzah Unassigned PCP - General Family Medicine 07/29/22 documented as of this encounter
--- OUTSIDE RECORDS SUMMARY | 2025-02-18 11:50 | XMS_ITS | Encounter Summary ---
Author Organization [employer] Address [address] [place] [address] [address] [place] [address] Care Team Providers Care Parts Expediter Name Role Phone PcpHamzah Unassigned Primary Care Provider U navailable Encounter Details Date Type Department Care Team (Latest Contact Info) Description 06/21/2020 [facility] CONVERSION[facility] Dental, Provider, DDS Social [...] 04/07/2025 8:30 AM EST Office Visit Hamzah [facility] [address] [place] [address] Rosa De Souza documented as of this encounter Visit Diagnoses Not on filedocumented in this encounter Care Teams Parts Expediter Relationship Specialty Start Date End Date PcpHamzah Unassigned PCP - General Family Medicine 07/29/22 documented as of this encounter
--- OUTSIDE RECORDS SUMMARY | 2025-02-18 11:50 | XMS_ITS | Clinical Summary ---
Author Organization [email or web address] Address [address] [place] [address] [address] [place] [address] Care Team Providers Care Nurse School Name Role Phone PcpHamzah Unassigned Primary Care Provider U navailable Allergies Active Allergy Reactions Criticality Noted Date Comments Povidone Iodine 07/19/2022 Other reaction(s): rash Tapentadol 07/19/2022 Other reaction(s): clear- skin broke out Medications simvastatin (Zocor) 40 MG tablet 07/10/2022 Active omeprazole (PriLOSEC) [address] capsule 07/10/2022 Active lisinopril 10 MG tablet 07/10/2022 Active Cholecalciferol- Vitamin C (VITAMIN D3-VITAMIN C PO) Take 2,000 Int'l Units by mouth. 08/19/2017 Active Immunizations Immunization Administration Dates Next Due Tdap 08/20/2010 Social History Tobacco Use Types Packs/Day Years Used Date Smoking Tobacco: Never Passive Smoke Exposure: Never Smokeless Tobacco: Never Tobacco Cessation:Counseling Given: Not Answered Alcohol Use Standard Drinks/Week Comments Never 0 (1 standard drink = 0.6 oz pur e alcohol) Comments Unknown Sex and Gender Information Value Date Recorded Sex Assigned at Female 07/11/2022 10:21 AM EDT Legal Sex Female 5:35 PM EDT Gender Identity Female 07/11/2022 10:21 AM EDT Sexual Orientation Choose not to disclose 2022 10:21 AM EDT Last Filed Vital Signs Vital Sign Reading Time Taken Comments Blood Pressure 128/78 11/12/2024 2:03 PM EDT Pulse 102 11/12/2024 2:03 PM EDT Temperature - - Respiratory Rate - - Oxygen Saturation - - Inhaled Oxygen Concentration - - Weight 94.8 kg (209 lb) 09/24/2024 8:42 AM EDT Height - - Body Mass Index - - Plan of Treatment Upcoming Encounters Date Type Department Care Team (Radha st Contact Info) Description 04/07/2025 8:30 AM EST Office Visit Hamzah [facility] [address] [place] [address] Rosa De Souza Health Maintenance Due Date Last Done Comments CT Colonography 1957 Colonoscopy 1957 Colorectal Cancer Screening 1957 Depression Screening 1957 FIT DNA/Cologuard 1957 FIT 1957 FOBT 1957 Lipid Panel 1957 SDOH Screening 1957 Sigmoidoscopy 1957 Alcohol/Substance Use Screening 1969 Hepatitis C Screening 08/17/1975 Pneumococcal Vaccine: 50+ Years (1 of 1 - PCV) 08/17/2007 Zoster Vaccines (1 of 2) 08/17/2007 DTaP/Tdap/Td Vaccines (2 - Td or Tdap) 08/20/2020 08/20/2010 COVID-19 Vaccine (1 - 2024- season) 2024 Influenza Vaccine (#1) 2024 Dental X-Ray: Bitewings 03/20/2025 03/19/20 24, 07/19/2022, 07/11/2021, Additional history exists Dental Oral Exam 03/27/2025 09/24/2024, , 08/15/2023, Additional history exists Dental Prophylaxis 03/27/2025 09/24/2024, 1 05/20/2023, 08/15/2023, Additional history exists Tobacco Screening 09/24/2025 09/24/2024 Dental X-Ray: Full Mouth 03/20/2027 024, 06/16/2018, 04/05/2005 RSV Patients and Patients Aged 60 years or older (1 - 1-dose 75+ series) 2032 HIB Vaccines Aged Out No longer eligi ble based on patient's age to complete this topic HPV Vaccines Aged Out No longer eligi ble based on patient's age to complete this topic Hepatitis A Vaccines Aged Out No long er eligible based on patient's age to complete this topic Hepatitis B Vaccines Aged Out No long er eligible based on patient's age to complete this topic IPV Vaccines Aged Out No longer eligi ble based on patient's age to complete this topic Meningococcal B Vaccine Aged Out No l onger eligible based on patient's age to complete this topic Meningococcal Vaccine Aged Out No fredi tammy eligible based on patient's age to complete this topic RSV under 20 months Aged Out No longe r eligible based on patient's age to complete this topic Rotavirus Vaccines Aged Out No longer eligible based on patient's age to complete this topic Procedures Procedure Name Priority Date/Time Associated Diagnosis Comments Full PROPHYLAXIS - ADULT Routine 025 8:30 AM EDT PERIODIC ORAL EVALUATION - ESTABLISHED PATIENT Routine 09/24/2024 8:30 AM EDT INTRAORAL - COMPLETE SERIES OF RADIOGRAPHIC IMAGES Routine 03/19/2024 8:30 AM EST from Last 3 Months or Most Recently Relevant to Health Maintenance Insurance DENTAL - [facility] Care Teams Nurse School Relationship Specialty Start Date End Date Hamzah Danielson Unassigned PCP - General Family Medicine 07/29/22
--- OUTSIDE RECORDS SUMMARY | 2025-02-18 11:50 | XMS_ITS | Encounter Summary ---
Author Organization [employer] Address [address] [place] [address] [address] [place] [address] Care Team Providers Care Paid Search Marketing Strategist Name Role Phone PcpHamzah Unassigned Primary Care [...] 04/07/2025 8:30 AM EST Office Visit Hamzah [facility] [address] [place] [address] Rosa De Souza documented as of this encounter Visit Diagnoses Not on filedocumented in this encounter Care Teams Paid Search Marketing Strategist Relationship Specialty Start Date End Date PcpHamzah Unassigned PCP - General Family Medicine 07/29/22 documented as of this encounter
--- OUTSIDE RECORDS SUMMARY | 2025-02-18 11:50 | XMS_ITS | Clinical Summary ---
Author Organization [facility] Address [address] [place] [address] Care Team Providers Care Parent Trainer Name Role Phone Kathy Purcell MD Primary Care Provider [phone] Allergies No known active allergies Social History [...] Health Maintenance Due Date Last Done Comments Advance Care Planning 1955 Hepatitis C Virus Screening 1957 DTaP/Tdap/Td Vaccines (1 - Tdap) 1976 Mammogram 1997 Colonoscopy 2002 Pneumococcal Vaccines 50+ (1 of 1 - PCV) 08/17/2007 Zoster (Shingles) Vaccine (1 of 2) 08/17/2007 DXA Bone Density (Females,Ag es 65 and older) 2022 Influenza Vaccine 10/29/2024 COVID-19 Vaccine ( - 2023-2 5 season) 2024 RSV Vaccine 50 years and old er and Patients (1 - 1-dose 75+ series) 2032 Hepatitis B Vaccines Aged Out No long er eligible based on patient's age to complete this topic [place] [address] [place] [address] OUT OF [facility] Care Teams Parent Trainer Relationship Specialty Start Date End Date Kathy Purcell MD [address] [place] [address] PCP - General 06/20/20
--- OUTSIDE RECORDS SUMMARY | 2025-02-18 11:50 | XMS_ITS | Clinical Summary ---
Author Organization [facility] Address [address] [facility] [address] [place] [id number] Phone Care Team Providers Care Continuity Person Name Role Phone Jacey Mckinney MD Primary Care Provider [phone] Allergies Active Allergy Reactions Criticality Noted Date Comments Povidone-Iodine Rash Low 07/19/2022 Other reaction(s): rash Adhesive 08/17/2022 Other reaction(s): clear- skin broke out Tapentadol 07/19/2022 Other reaction(s): clear- skin broke out Medications lisinopril (PRINIVIL,ZESTR IL) 10 MG tablet Take 10 mg by mouth daily. Active simvastatin (ZOCOR) 10 MG tablet Take 10 mg by mouth nightly at bedtime. Active fluticasone propionate (FLONASE) 50 mcg/actuation nasal spray 1 spray by Nasal route daily. Active loratadine (CLARITIN) 10 mg tablet Take 10 mg by mouth daily. Active naproxen (NAPROSYN) 500 MG tablet Take 1 tablet (500 mg total) by mouth 2 (two) times a day for 3 days. Then twice daily as needed for pain, inflammation 20 tablet Active Active Problems No known active problems Social History Tobacco Use Types Packs/Day Years Used Date Smoking Tobacco: Never Assessed Education Answer Date Recorded Are you interested in more education? Not on cesar e 08/17/2022 Are you concerned about learning? Not on file 08/17/2022 No 08/17/2022 No 08/17/2022 Digital Access Answer Date Recorded No 08/27/2022 No 08/27/2022 Reliable internet access at home? Not on file 08/27/2022 Device with a working camera? Not on file Comments Unknown Sex and Gender Information Value Date Recorded Sex Assigned at Not on file Legal Sex Female 10:07 AM EDT Gender Identity Not on file Sexual Orientation Not on file Last Filed Vital Signs Vital Sign Reading Time Taken Comments Blood Pressure 153/92 08/17/2022 11:11 AM EDT Pulse 98 08/17/2022 11:11 AM EDT Temperature 37.9 C (100.3 F) 08/17/2022 11:11 AM EDT Respiratory Rate 22 08/17/2022 11:11 AM EDT Oxygen Saturation 98% 08/17/2022 11:11 AM EDT Inhaled Oxygen Concentration - - Weight - - Height - - Body Mass Index - - Plan of Treatment Health Maintenance Due Date Last Done Comments CREATININE LEVEL 1957 LIPID PANEL 1957 POTASSIUM LEVEL 1957 DEPRESSION SCREENING 1969 SMOKING Hx and SMOKELESS TOB ACCO SCREENING 1970 HEPATITIS C SCREENING 08/17/1975 MAMMOGRAM 1997 COLOGUARD 2002 COLONOSCOPY 2002 COLORECTAL CANCER SCREENING 2002 FIT TEST 2002 FOBT 2002 SIGMOIDOSCOPY 2002 VIRTUAL COLONOSCOPY 2002 PNEUMOCOCCAL VACCINES (50+ y ears) (1 of 1 - PCV) 08/17/2007 ZOSTER VACCINES (1 of 2) 08/17/2007 Adult Td,Tdap Booster 08/20/2020 08/20/2010 OSTEOPOROSIS SCREENING INITI AL (ONE-TIME) 2022 INFLUENZA VACCINE (#1) 2024 COVID-19 VACCINE ( - 2024-2 6 season) 2024 RSV VACCINE (1 - 1-dose 75+ series) 2032 HEPATITIS A VACCINES Aged Out No long er eligible based on patient's age to complete this topic HIB VACCINES Aged Out No longer eligi ble based on patient's age to complete this topic MENINGOCOCCAL VACCINES (ACWY) Aged Out No longer eligible based on patient's age to complete this topic MENINGOCOCCAL VACCINES (B) Aged Out N o longer eligible based on patient's age to complete this topic Medical Devices Not on file Insurance CIGNA PPO CIGNA PPO CIGNA PPO CIGNA PPO CIGNA PPO CIGNA PPO Care Teams Continuity Person Relationship Specialty Start Date End Date Jacey Mckinney MD PCP - General Internal Medicine 08/17/22 Additional Source Comments The information contained in this document represents components of the legal health record. It is not the complete legal health record.[facility]
--- OUTSIDE RECORDS SUMMARY | 2025-02-18 11:50 | XMS_ITS | Encounter Summary ---
Author Organization [employer] Address [address] [place] [address] [address] [place] [address] Care Team Providers Care Extension Professor Name Role Phone PcpHamzah Unassigned Primary Care Provider U navailable Encounter Details Date Type Department Care Team (Latest Contact Info) Description 07/11/2021 Abstract [facility] CONVERSION[facility] Dental, Provider, DDS Social [...] 04/07/2025 8:30 AM EST Office Visit Hamzah [facility] [address] [place] [address] Rosa De Souza documented as of this encounter Visit Diagnoses Not on filedocumented in this encounter Care Teams Extension Professor Relationship Specialty Start Date End Date PcpHamzah Unassigned PCP - General Family Medicine 07/29/22 documented as of this encounter
--- OUTSIDE RECORDS SUMMARY | 2025-02-18 11:50 | XMS_ITS | Encounter Summary ---
Author Organization [employer] Address [address] [place] [address] [address] [place] [address] Care Team Providers Care Deep Fryer Assembler Name Role Phone PcpHamzah Unassigned Primary Care Provider U navailable Encounter Details Date Type Department Care Team (Latest Contact Info) Description 12/20/2019 Abstract [facility] Dental, Provider, DDS Social [...] 04/07/2025 8:30 AM EST Office Visit Hamzah [facility] [address] [place] [address] Rosa De Souza documented as of this encounter Visit Diagnoses Not on filedocumented in this encounter Care Teams Deep Fryer Assembler Relationship Specialty Start Date End Date PcpHamzah Unassigned PCP - General Family Medicine 07/29/22 documented as of this encounter
--- OUTSIDE RECORDS SUMMARY | 2025-02-18 11:50 | XMS_ITS | Encounter Summary ---
Author Organization [employer] Address [address] [place] [address] [address] [place] [address] Care Team Providers Care Milk Pasteurizer Name Role Phone PcpHamzah Unassigned Primary Care Provider U navailable Encounter Details Date Type Department Care Team (Latest Contact Info) Description 07/09/2018 Abstract [facility] CONVERSION[facility] Dental, Provider, DDS Social [...] AM EST Office Visit Hamzah [facility] [address] [place] [address] Rosa De Souza documented as of this encounter Visit Diagnoses Not on filedocumented in this encounter Care Teams Milk Pasteurizer Relationship Specialty Start Date End Date PcpHamzah Unassigned PCP - General Family Medicine 07/29/22 documented as of this encounter
== END 2025-02-18 11:53 | disposition home or self-care (01) ==
LOC: HO.HMCFM 10:56
PROVIDERS: PCP Internal Medicine; Visit Provider Internal Medicine
DX: M25.511 Pain in right shoulder (principal); M25.512 Pain in left shoulder

== ENCOUNTER 2025-02-18 10:55 | Outpatient (REF) | payer OTHER, SELFPAY ==
[2025-02-18 19:19] LABS: Erythrocyte Sedimentation Rate 31 MM/HR (0-20)
[2025-02-21 11:09] LABS: Anti Nuclear Antibody Screen NEGATIVE (NEGATIVE)
== END 2025-02-18 10:56 | disposition home or self-care (01) ==
LOC: HO.WFDLDS 10:55
PROVIDERS: Visit Provider Internal Medicine
DX: M25.512 Pain in left shoulder (principal); M25.511 Pain in right shoulder; M25.552 Pain in left hip; M54.2 Cervicalgia; I10 Essential (primary) hypertension; E78.5 Hyperlipidemia, unspecified; Z79.899 Other long term (current) drug therapy
CPT/HCPCS: 36415; 85652; 86038; 86140

== ENCOUNTER 2025-03-29 08:13 | Outpatient (REF) | payer OTHER, SELFPAY ==
--- OUTSIDE RECORDS SUMMARY | 2025-03-29 09:46 | XMS_ITS | Clinical Summary ---
Author Organization [employer] Address [address] [place] [address] [address]t [place] [address] Care Team Providers Care Sheep Clipper Name Role Phone Unavailable Primary Care Provider Unavailabl e Allergies Active Allergy Reactions Criticality Noted Date [...] AM EST Office Visit Hamzah [facility] [address] [place] [address] Rosa De Souza Health Maintenance Due Date [...] to Health Maintenance Insurance D[facility]AL - [facility]
--- OUTSIDE RECORDS SUMMARY | 2025-03-29 09:46 | XMS_ITS | Clinical Summary ---
Author Organization [facility] Address [address] [facility] [address] [place] [address] Phone Care Team Providers Care Packaging Line Attendant Name Role Phone Jacey Mckinney MD Primary Care Provider Allergies Active Allergy Reactions Criticality Noted Date [...] PPO CIGNA PPO CIGNA PPO Care Teams Packaging Line Attendant Relationship Specialty Start Date End Date Jacey Mckinney MD PCP - General Internal Medicine 08/17/22 Additional Source Comments The information contained in this document represents components of the legal health record. It is not the complete legal health record.[facility]
--- OUTSIDE RECORDS SUMMARY | 2025-03-29 09:46 | XMS_ITS | Encounter Summary ---
Author Organization [employer] Address [address] [place] [address] [address] [place] [address] Care Team Providers Care Historian Research Assistant Name Role Phone Hamzah Danielson Unassigned Primary Care Provider U navailable Encounter [...] 04/07/2025 8:30 AM EST Office Visit Hamzah [facility] [address] [place] [address] Rosa De Souza documented as of this encounter Visit Diagnoses Not on filedocumented in this encounter Care Teams Historian Research Assistant Relationship Specialty Start Date End Date PcpHamzah Unassigned PCP - General Family Medicine 07/29/22 03/03/25 documented as of this encounter
--- OUTSIDE RECORDS SUMMARY | 2025-03-29 09:46 | XMS_ITS | Encounter Summary ---
Author Organization [employer] Address [address] [place] [address] [address] [place] [address] Care Team Providers Care Visual Educator Name Role Phone Hamzah Danielson Unassigned Primary [...] 04/07/2025 8:30 AM EST Office Visit Hamzah [facility] [address] [place] [address] Rosa De Souza documented as of this encounter Visit Diagnoses Not on filedocumented in this encounter Care Teams Visual Educator Relationship Specialty Start Date End Date PcpHamzah Unassigned PCP - General Family Medicine 07/29/22 03/03/25 documented as of this encounter
--- OUTSIDE RECORDS SUMMARY | 2025-03-29 09:46 | XMS_ITS | Clinical Summary ---
Author Organization [facility] Address [address] [place] [address] Care Team Providers Care Behavioral Health Director Name Role Phone Kathy Purcell MD Primary Care Provider [phone] Allergies No known active allergies Social History [...] older) 2022 Influenza Vaccine 10/29/2024 COVID-19 Vaccine (1 - 2024-2 6 season) 2024 RSV Vaccine 50 years and old er and Patients (1 - 1-dose 75+ series) 2032 Hepatitis B Vaccines Aged Out No long er eligible based on patient's age to complete this topic [place] [address] [place] [address] OUT OF [facility] Care Teams Behavioral Health Director Relationship Specialty Start Date End Date Kathy Purcell MD [address] [place] [address] PCP - General 06/20/20
--- OUTSIDE RECORDS SUMMARY | 2025-03-29 09:46 | XMS_ITS | Encounter Summary ---
Author Organization [employer] Address [address] [place] [address] [address] [place] [address] Care Team Providers Care Warhead Maintenance Specialist Name Role Phone Hamzah Danielson Unassigned Primary [...] 04/07/2025 8:30 AM EST Office Visit Hamzah [facility] [address] [place] [address] Rosa De Souza documented as of this encounter Visit Diagnoses Not on filedocumented in this encounter Care Teams Warhead Maintenance Specialist Relationship Specialty Start Date End Date PcpHamzah Unassigned PCP - General Family Medicine 07/29/22 03/03/25 documented as of this encounter
--- OUTSIDE RECORDS SUMMARY | 2025-03-29 09:46 | XMS_ITS | Encounter Summary ---
Author Organization [employer] Address [address] [place] [address] [address] [place] [address] Care Team Providers Care Laborer Hide House Name Role Phone Hamzah Danielson Unassigned Primary [...] 04/07/2025 8:30 AM EST Office Visit Hamzah [facility] [address] [place] [address] Rosa De Souza documented as of this encounter Visit Diagnoses Not on filedocumented in this encounter Care Teams Laborer Hide House Relationship Specialty Start Date End Date PcpHamzah Unassigned PCP - General Family Medicine 07/29/22 03/03/25 documented as of this encounter
--- OUTSIDE RECORDS SUMMARY | 2025-03-29 09:46 | XMS_ITS | Encounter Summary ---
Author Organization [facility] Address [address] [place] [address] [address] [place] [address] Care Team Providers Care Manager Desktop Name Role Phone Hamzah Danielson Unassigned Primary [...] 04/07/2025 8:30 AM EST Office Visit Hamzah [facility] [address] [place] [address] Rosa De Souza documented as of this encounter Visit Diagnoses Not on filedocumented in this encounter Care Teams Manager Desktop Relationship Specialty Start Date End Date PcpHamzah Unassigned PCP - General Family Medicine 07/29/22 03/03/25 documented as of this encounter
--- OUTSIDE RECORDS SUMMARY | 2025-03-29 09:46 | XMS_ITS | Encounter Summary ---
Author Organization [employer] Address [address] [place] [address] [address] [place] [address] Care Team Providers Care Head Correction Officer Name Role Phone Hamzah Danielson Unassigned Primary [...] 04/07/2025 8:30 AM EST Office Visit Hamzah [facility] [address] [place] [address] Rosa De Souza documented as of this encounter Visit Diagnoses Not on filedocumented in this encounter Care Teams Head Correction Officer Relationship Specialty Start Date End Date PcpHamzah Unassigned PCP - General Family Medicine 07/29/22 03/03/25 documented as of this encounter
[2025-03-29 11:23] LABS: MANUAL DIFF FLAG NO
[2025-03-29 11:27] LABS: Hematocrit 41.3 % (37.0-47.0); Hemoglobin 13.6 g/dl (12.0-16.0); Imm Gran Abs Auto 0.02 X10*3/uL (0.00-0.03); Imm Gran Pct Auto 0.3 % (0.0-0.4); Lymphocytes Absolute Auto 1.5 X10*3/uL (1.2-4.9); Mean Corpuscular HGB Conc 32.9 g/dl (31.0-35.0); Mean Corpuscular Hemoglobin 29.2 pg (27.0-33.0); Mean Corpuscular Volume 88.8 fL (80.0-98.0); NRBC Abs Auto 0.000 X10*3/uL (0.0-0.012); NRBC Pct Auto 0.0 /100WBC (0.0-0.2); Platelet Count 288 X10*3/uL (160-400); Red Blood Count 4.65 X10*6/uL (4.20-5.50); White Blood Count 6.8 X10*3/uL (4.8-10.8)
[2025-03-29 12:16] LABS: Alanine Aminotransferase 19 U/L (0-31); Albumin Level 4.2 g/dL (3.5-5.0); Alkaline Phosphatase 75 U/L (39-117); Anion Gap 12 (12-20); Aspartate Amino Transferase 21 U/L (5-31); Blood Urea Nitrogen 27 mg/dL (9-16); Calcium 9.4 mg/dL (8.4-10.2); Carbon Dioxide 28 mmol/L (22-29); Chloride 109 mmol/L (96-108); Cholesterol 217 mg/dL (<200); Estimated Glomerular Filt Rate > 60; HDL Cholesterol 50 mg/dL (>40); Potassium 4.6 mmol/L (3.3-5.1); Sodium 144 mmol/L (135-145); Total Protein 7.0 g/dL (6.5-8.0); Triglycerides 144 mg/dL (<150)
== END 2025-03-29 08:14 | disposition home or self-care (01) ==
LOC: HO.WFDLDS 08:13
PROVIDERS: Visit Provider Internal Medicine
DX: Z13.228 Encounter for screening for other metabolic disorders (principal); Z13.0 Encounter for screening for diseases of the blood and blood-forming organs and certain disorders involving the immune mechanism; I10 Essential (primary) hypertension; E78.2 Mixed hyperlipidemia; R73.09 Other abnormal glucose
CPT/HCPCS: 36415; 80053; 80061; 83036; 84443; 85025